=== PATIENT | female | born 1990 | race Caucasian/White ===

== ENCOUNTER 2019-01-21 03:19 | Emergency (ER) | payer OTHER, MEDICAID ==
[~2019-01-21] VITALS: Ht 160 cm; Wt 129.3 kg
[2019-01-21 03:25] VITALS: BP 143/89
[2019-01-21] MEDS ORDERED: NORCO 7.5-3251 EACH PO (03:44)
== END 2019-01-21 03:54 | disposition home or self-care (01) ==
LOC: M.ERS 03:19
DX: R51 Headache (principal); H92.01 Otalgia, right ear; J34.89 Other specified disorders of nose and nasal sinuses; Z88.5 Allergy status to narcotic agent; Z88.8 Allergy status to other drugs, medicaments and biological substances